=== PATIENT | female | born 1935 | race Caucasian/White ===

== ENCOUNTER 2017-07-17 20:12 | Emergency (ER) | payer MEDICARE, OTHER ==
[~2017-07-17] VITALS: Ht 157.5 cm; Wt 59.5 kg
[~2017-07-17 20:12] MED LIST: ADVAIR DISK1 INH; CRESTOR5 M1 PO; LISINOPRIL10 MG PO; SPIRONOLACT25 MG PO; ZETIA10 MG PO
[2017-07-18] MEDS ORDERED: LORTAB 1010 MG PO (00:17)
[2017-07-18 01:35] VITALS: BP 144/77
== END 2017-07-18 01:35 | disposition home or self-care (01) ==
LOC: ED 20:12
DX: S82.142A Displaced bicondylar fracture of left tibia, initial encounter for closed fracture (principal); I10 Essential (primary) hypertension; J45.909 Unspecified asthma, uncomplicated; W10.9XXA Fall (on) (from) unspecified stairs and steps, initial encounter; Y93.E9 Activity, other interior property and clothing maintenance; Y92.008 Other place in unspecified non-institutional (private) residence as the place of occurrence of the external cause; Z85.3 Personal history of malignant neoplasm of breast

== ENCOUNTER 2017-07-24 10:41 | Inpatient (IN) | payer MEDICARE, OTHER ==
[~2017-07-24] VITALS: Ht 157.5 cm; Wt 62.6 kg
[~2017-07-24 10:41] MED LIST changes: +LORTAB 1010 MG PO
[2017-07-24] MEDS ORDERED: AMLODIPINE5 MG PO (11:09)
[2017-07-24] MEDS ORDERED: ESCITALOPRAM OX10 MG PO (11:10)
[2017-07-24] MEDS ORDERED: PROAIR HFA IN (11:10)
[2017-07-27] VITALS (9 sets, daily range): BP systolic 113–141; BP diastolic 50–69
--- NOTE | 2017-07-27 14:43 | NUR ---
RECEIVED PT FROM OR VIA BED. RECEIVED REPORT FROM OR NURSE. PT RESTING QUIETLY IN BED. O2 AT 3 LITERS VIA NC. IV FLUIDS INFUSING WITHOUT DIFFICULTY. SITE WITHOUT REDNESS OR EDEMA. DRESSING TO LEFT KNEE CLEAN, DRY AND INTACT. ELEVATED ON PILLOWS. SCD TO RIGHT LEG. DAUGHTER AT BEDSIDE. WILL CONTINUE TO MONITOR. CALL LIGHT WITHIN REACH.
[2017-07-27] MEDS ORDERED: ANASTROZOLE1 MG PO (15:45)
--- NOTE | 2017-07-27 15:49 | NUR ---
PT COMPLAINED OF PAIN IN LEFT KNEE, MEDICATED WITH MORPHINE 2 MG IV PUSH. PT STATES KNEE PAIN AT 10, REPOSITIONED KNEE WELL. CALL LIGHT WITHIN REACH.
--- NOTE | 2017-07-27 16:41 | NUR ---
Isaac BLACKMAN COMPLETED.
--- NOTE | 2017-07-27 20:00 | NUR ---
PATIENT RESTING IN BED AT THIS TIME-AWAKE ALERT AND ORIENTEDX3, OMAHA AND DAUGHTER AT BEDSIDE. PATIENT C/O POST-OP PAIN-MEDICATED WITH PERCOCET TABS 2 FOR LEFT KNEE PAIN. IV SITE TO RIGHT FOREARM WITH IVF LR PATENT AND INFUSING AT 100CC/HR. DRESSING TO LEFT KNEE INTACT AND SECURED WITH SANDHYA WRAP. O2 VIA NASAL CANNULA IN PLACE. ENCOURAGED USE OF IS Q1H WHILE AWAKE AND CDB EXERCISES. SAFETY PRECAUTIONS REINFORCED. CALL LIGHT IN REACH. WILL CONT TO MONITOR.
--- NOTE | 2017-07-28 | NUR ---
TEMP 102.2-ICE PACKS TO ARMPITS AND COLD CLOTH TO FOREHEAD. PATIENT MEDICATED WITH PERCOCET TABS 2 FOR PAIN AND TEMP. BLANKLET REMOVED FROM BED. DAUGHTER REMAINS AT BEDSIDE. CALL LIGHT IN REACH. WILL CONT TO MONITOR.
--- NOTE | 2017-07-28 01:27 | NUR ---
TEMP REMAINS 102.0 AT THIS TIME-GOOD PAIN RELIEF FROM PERCOCET. TYLENOL 650MG PO GIVEN FOR TEMP. DAUGHTER REMAINS AT BEDSIDE. IVF PATENT AND INFUSING AT 100CC/HR VIA RIGHT FOREARM SITE. TAKING PO FLUIDS WELL AND TOLERATED WELL. DRESSING TO LEFT KNEE INTACT AND SECURED WITH SANDHYA WRAP. SAFETY PRECAUTIONS REINFORCED. CALL LIGHT IN REACH. WILL CONT TO MONITOR.
--- NOTE | 2017-07-28 02:30 | NUR ---
PATIENT TEMP TO 100.1. PATIENT ASSISTED OOB TO RECLINER PER PATIENT REQUEST-USING IS INSTRUCTED. DAUGHTER REMAINS AT BEDSIDE. CALL LIGHT IN REACH. WILL CONT TO MONITOR.
[2017-07-28 04:50] VITALS: BP 103/65
[2017-07-28 06:01] LABS: HEMATOCRIT 36.2 % (37.0-47.0); HEMOGLOBIN 11.9 g/dl (12.0-16.0); IMMATURE GRANULOCYTES 0.4 % (0.0-1.0); MEAN CELL VOLUME 91.2 fL CALC (80.0-100.0); MEAN CORPUSCULAR HGB CONC 32.9 g/L CALC (32.0-36.0); PLATELET COUNT 203 thou/uL (130-400); RED BLOOD COUNT 3.97 mill/uL (4.20-5.60); RED CELL DISTRI WIDTH 14.4 % (11.5-15.5)
[2017-07-28 06:17] LABS: ANION GAP 16 (6-22 (CALC)); BUN 14 mg/dL (8-23); BUN/CREATININE RATIO 15 (12-20 (CALC)); CARBON DIOXIDE 25 mmol/l (22-30); CHLORIDE 101 mmol/l (95-108); GFR 53 ML/MIN (>=60 (CALC)); GFR FOR AFR.AMER. > 60 ML/MIN (>=60 (CALC)); MAGNESIUM 1.2 mg/dL (1.6-2.3); SODIUM 138 mmol/l (137-146)
[2017-07-28 06:26] LABS: BAND 13 % (0-8); MANUAL DIFFERENTIAL YES; PLATELET ESTIMATE NORMAL
--- NOTE | 2017-07-28 07:00 | NUR ---
RECEIVED BEDSIDE REPORT FROM ABDIAS ALBERTO. RESTING IN HIGH FOWLERS WITH LEFT LEG ELEVATED ON PILLOWS. DRESSING TO LEFT LEG SECURED WITH SANDHYA WRAP, CDI. SCD TO RIGHT LOWER EXTREMITY. RESPS EVEN AND UNLABORED ON O2 VIA NC. DAUGHTER AT BEDSIDE. VOICES NO NEEDS AT THIS TIME. PLAN OF CARE DISCUSSED. SAFETY PRECAUTIONS REINFORCED. BED IN LOWEST POSITION WITH WHEELS LOCKED. CALL LIGHT WITHIN REACH. ENCOURAGED PT AND DAUGHTER TO CALL FOR ANY NEEDS.
[2017-07-28 07:45] VITALS: BP 105/48
--- NOTE | 2017-07-28 08:20 | NUR ---
RESTING IN BED WITH LEFT LEG ELEVATED ON PILLOWS. RESPS EVEN AND UNLABORED ON O2 VIA NC. DAUGHTER AT BEDSIDE. MEDICATED WITH PERCOCET X2 PO FOR C/O 8/10 LEFT KNEE THROBBING WITH ZOFRAN IVP FOR NAUSEA. ICE PACKS APPLIED TO LEFT KNEE, DRESSING TO LEFT KNEE SECURED WITH SANDHYA WRAP CDI, CMS TO LEFT LOWER EXTREMITY. CALL LIGHT WITHIN REACH. WILL CONTINUE TO MONITOR.
--- NOTE | 2017-07-28 08:50 | NUR ---
PHYSICAL THERAPY IN WITH PT.
--- NOTE | 2017-07-28 09:29 | NUR ---
PT WAS SEEN LAYING ON BED WITHOUT DIZZINESS BUT REPORTS FEELING SICK. PT WAS ABLE TO PERFORM SUPINE TO SIT WITH MODIFIED INDEP. AND VERBAL CUES. SIT O STAND REQUIRED MODERATE ASSIST. NOTED INSTABILITY OF B LE ON STANDING WITH SHAKING OF B UE. PT REPORTED DIFFICULTY EXTENDING L KNEE AND PAIN WHEN WB ON IT. ASSISTED PT FROM BED TO/FROM COMMODE WITH RW AND MOD. ASSIST. PT WAS VERY UNSTABLE AND IS UNSAFE TO BE LEFT ALONE DURING AMBULATION. LEFT PT SUPINE ON BED WITH L LEG ELEVATED ON PILLOW. CALL LEVINE WITHIN REACH. FALL PRECAUTION WAS ALSO REINFORCED.
[2017-07-28 11:00] VITALS: BP 100/42
[2017-07-28 11:32] LABS: URINE BILIRUBIN - DIPSTICK NEGATIVE (NEGATIVE); URINE BLOOD DIPSTICK SMALL (NEGATIVE); URINE GLUCOSE - DIPSTICK NEGATIVE (NEGATIVE); URINE KETONE TRACE mg/dL (NEGATIVE); URINE LEUK ESTERASE NEGATIVE (Negative); URINE NITRITE - DIPSTICK NEGATIVE (Negative); URINE PH 5.5 (4.5-8.0); URINE PROTEIN - DIPSTICK TRACE mg/dL (NEG-TRACE); URINE SPECIFIC GRAVITY >=1.030; URINE UROBILINOGEN - DIPSTICK 0.2 E.U./dL (0.2)
[2017-07-28 11:33] LABS: URINE CLARITY HAZY; URINE COLOR DK. YELLOW; URINE WBC 0-2 WBC/hpf (0-5)
[2017-07-28 11:34] LABS: URINE BACTERIA FEW hpf; URINE EPITHELIAL CELLS MODERATE EPI/hpf (0-FEW)
--- NOTE | 2017-07-28 12:00 | NUR ---
IN HIGH FOWLERS EATING LUNCH. RESPS EVEN AND UNLABORED ON O2 VIA NC. #20 RFA INFUSING MAG SULFATE WITHOUT DIFFICULTY, SITE APPEARS HEALTHY. LEFT LEG ON PILLOWS, DRESSING SECURED WITH SANDHYA WRAP, CDI. ICE PACKS TO LEFT KNEE. VOICES NO NEEDS AT THIS TIME. CALL LIGHT WITHIN REACH. ENCOURAGED PT TO CALL FOR ANY NEEDS.
[2017-07-28 16:00] VITALS: BP 102/46
--- NOTE | 2017-07-28 16:00 | NUR ---
RESTING IN HIGH FOWLERS DAUGHTER AT BEDSIDE. RESPS EVEN AND UNLABORED ON O2 VIA NC. DENIES PAIN OR DISCOMFORT. SPO2 94% ON O2 AT 2L VIA NC. OXYGEN REMOVED, WILL RECHECK SPO2 IN 30 MINS. PT AND DAUGHTER INSTRUCTED TO CALL IF SOB OR DYSPNEA. CALL LIGHT WITHIN REACH. WILL CONTINUE TO MONITOR.
--- NOTE | 2017-07-28 16:30 | NUR ---
SPO2 77% ON ROOM AIR WHILE PT AT REST. PT PLACED ON O2 AT 2L VIA NC, SPO2 RETURNED TO 91% WITHIN 60 SECONDS. LORY LOPEZ NOTIFIED. CALL LIGHT WITHIN REACH.
--- NOTE | 2017-07-28 17:29 | NUR ---
pm: Patient seen for ex and functional activities. Her daughter is present and states they have changed their minds and patient is going to go to rehab for a while. Ex done in supine and sitting for rom and strengthening. Gait done with rolling walker. She mod assist and cuing to place wgt on the surgical limb. Endurance was 10 feet limited by visible trembling in arms and legs, and verbalization of fatigue. She was left comfortable in the chair with the call light and tray table in reach.
--- NOTE | 2017-07-28 20:00 | NUR ---
PATIENT RESTING IN BED WITH O2 VIA NASAL CANNULA IN PLACE. AWAKE ALERT AND ORIENTEDX3-PATIENT IS [place]. PATIENT ASSISTED FROMN BED TO BSC TO VOID USING THE WALKER-PATIENT IS VERY UNSTEADY ON HER FEET AND NEEDS CONSTANT QUES. PATIENT IS VOIDING QS ROSA ELENA URINE. KENDY-CARE WITH SOAP AND H20 PROVIDED AND TRANSFERRED TO RECLINER USING THE WALKER. DRESSING TO LEFT KNEE INTACT AND SECURED WITH SANDHYA WRAP. HEP LOCK TO RIGHT FOREARM INTACT AND APPEARS HEALTHY AT THIS TIME. ENCOURAGED USE OF IS Q1H WHILE AWAKE AND PATIENT IS ABLE TO DEMONSTRATE CORRECT USE OF THE DEVICE. ENCOURAGE PO FLUIDS AND HIGH FIBER DIET TO PREVENT ANY POST-OP CONSTIPATION. ABD IS SOFT WITH ACTIVE BS. STATES THAT SHE IS PASSING SOME FLATUS. PATIENT MEDICATED FOR POST-OP PAIN WITH PERCOCETS ORDERED. SAFETY PRECAUTIONS REINFORCED. CALL LIGHT IN REACH. WILL CONT TO MONITOR.
[2017-07-28 20:25] VITALS: BP 105/59
--- NOTE | 2017-07-28 23:30 | NUR ---
PATIENT APPEARS SLEEPING WITH HOB ELEVATED AND EYES CLOSED. O2 VIA NASAL CANNULA IN PLACE. DAUGHTER RESTING ON COUCH IN THE ROOM. PROVIDED WITH RECLINER AND LINENS TO STAY THE NIGHT. CALL LIGHT IN REACH. WILL CONT TO MONITOR.
[2017-07-29] VITALS (8 sets, daily range): BP systolic 87–119; BP diastolic 43–66
--- NOTE | 2017-07-29 00:32 | NUR ---
PATIENT RESTING IN BED WITH HOB ELEVATED AND O2 VIA NASAL CANNULA IN PLACE. TEMP-100.9-MEDICATED WITH TYLENOL 650MG PO AND WITH PERCOCET 10/325MG 1 TABLET FOR 5/10 PAIN SCALE. PATIENT USING IS INSTRUCTED. DAUGHTER REMAINS AT BEDSIDE. CALL LIGHT IN REACH. WILL CONT TO MONITOR.
--- NOTE | 2017-07-29 04:10 | NUR ---
PATIENT RESTING IN BED WITH HOB ELEVATED AND EYES CLOSED-APPEARS SLEEPING AT THIS TIME. O2 VIA NASAL CANNULA IN PLACE. DAUGHTER RESTING AT BEDSIDE. CALL LIGHT IN REACH. WILL CONT TO MONITOR.
[2017-07-29 05:31] LABS: HEMATOCRIT 30.5 % (37.0-47.0); HEMOGLOBIN 10.3 g/dl (12.0-16.0); IMMATURE GRANULOCYTES 0.6 % (0.0-1.0); MEAN CELL VOLUME 89.7 fL CALC (80.0-100.0); MEAN CORPUSCULAR HGB 30.3 pG CALC (26.0-32.0); MEAN CORPUSCULAR HGB CONC 33.8 g/L CALC (32.0-36.0); NEUT# 12.02 thou/uL (2.00-7.15); RED BLOOD COUNT 3.4 mill/uL (4.20-5.60)
[2017-07-29 05:54] LABS: CREATININE 1.1 mg/dL (0.5-1.0); POTASSIUM 4.3 mmol/l (3.5-5.1)
[2017-07-29 05:57] LABS: MAGNESIUM 2.3 mg/dL (1.6-2.3)
--- NOTE | 2017-07-29 07:00 | NUR ---
received bedside report from seng cade. resting in semi fowlers with left leg elevated on pillows, dressing to left knee secured with lance wrap, cdi. resps even and unlabored on o2 via nc. scd to right lower extremity. denies pain or discomfort. daughter at bedside. plan of care discussed. safety precautions reinforced. bed in lowest position with wheels locked. call light within reach. encouraged pt and family to call for any needs.
--- NOTE | 2017-07-29 07:50 | NUR ---
SITTING IN BEDSIDE CHAIR EATING BREAKFAST. DAUGHTER AT BEDSIDE. RESPS EVEN AND UNLABORED ON O2 VIA NC. MEDIATED WITH TYLENOL PO FOR TYMPANIC TEMP 100.5. PO FLUIDS OFFERED. CALL LIGHT WITHIN REACH. WILL CONTINUE TO MONITOR.
--- NOTE | 2017-07-29 09:10 | NUR ---
MEDIATED WITH PERCOCET X2 PO FOR C/O 07/25 LEFT KNEE PAIN. WILL CONTINUE TO MONITOR.
--- NOTE | 2017-07-29 11:43 | NUR ---
ASSISTED TO BED FROM RECLINER WITH MAX ASSIST WITH UNSTEADY GAIT, REQUIRING FREQUENT CUES. DRESSING TO LEFT KNEE REMOVED, NO DRAINAGE OR REDNESS NOTED. DERMABOND LEFT IN PLACE. TOLERATED WITHOUT DIFFICULTY. DAUGHTER AT BEDSIDE. CALL LIGHT WITHIN REACH. WILL CONTINUE TO MONITOR.
--- NOTE | 2017-07-29 12:15 | NUR ---
PHYSICAL THERAPY IN WITH PT.
[2017-07-29 13:02] LABS: CREATININE 1.1 mg/dL (0.5-1.0); POTASSIUM 4.2 mmol/l (3.5-5.1)
--- NOTE | 2017-07-29 13:20 | NUR ---
NEB TX NOT GIVEN. PT SLEEPING AND DID NOT WANT WOKE.
--- NOTE | 2017-07-29 14:08 | NUR ---
PT WAS SEEN SLEEPING WITH LOUD SNORING. ATTEMPTED TO WAKE HER UP VERBALLY AND WITH VIGOROUS SHAKING BUT PT STAYED ASLEEP.
--- NOTE | 2017-07-29 14:11 | NUR ---
PATIENT IN BED WILLING TO WALK TODAY. HER DAUGHTER IS PRESENT. SUPINE TO SIT WITH SUPPORT AT LEFT LE ONLY. SIT TO STAND WITH MOD A AND V.C.'S FOR SAFETY. INSTRUCTED IN SEQUENCING FOR STEP TO GAIT AT RW FOR AM TX OF GT AND FUNCTIONAL ACTIVITY OF TRANSFERS. PATIENT WAS ABLE TO AMB 30 FEET WITH LIGHT CGA AND CONSTANT V.C.S. STAND TO SIT WITH VERBAL AND TACTILE CUES. PATIENT FATIGUED AND WISHED TO REMAIN SITTING ON EDGE OF BED FOR HER LUNCH TRAY. SHE WAS ABLE TO SCOOT BACK WITH L LE SUPPORTED. TRAY TABLE IN FRONT OF PATIENT WITH HER DAUGHTER PRESENT.
--- NOTE | 2017-07-29 20:00 | NUR ---
PATIENT SITTING UP IN THE RECLINER AT THIS TIME-AWAKE ALERT AND ORIENTEDX3 WITH SLOWED VERBAL REPONSES. HAND GRASPS ARE STRONG AND EQUAL. DAUGHTER AT BEDSIDE. IV SITE TO RIGHT FOREARM INTACT AND APPEARS HEALTHY WITH IVF NS PATENT AND INFUSING AT 100CC/HR. TELE MONITORING DEVICE IN PLACE. LEFT KNEE INCISION IS BORDER MEASURER WITH DERMABOND INTACT-WELL APPROXIMATED WITH SOME POST-OP SWELLING NOTED. ENCOURAGED CONT USE OF IS Q1H WHILE AWAKE,DEMONSTRATES USE OF DEVICE. SAFETY PRECAUTOINS REINFORCED. CALL LIGHT IN REACH. WILL CONT TO MONITOR.
--- NOTE | 2017-07-29 22:15 | NUR ---
PATIENT RESTING IN BED-MEDICATED FOR PAIN WITH PERCOCET ORDERED FOR POST-OP PAIN. CALL LIGHT IN REACH. WILL CONT TO MONITOR
--- NOTE | 2017-07-30 00:15 | NUR ---
PATIENT SITTING UP IN THE RECLINER AT THIS TIME-AWAKE ALERT AND ORIENTEDX3 WITH SLOWED VERBAL RESPONSES. HAND GRASPS ARE STRONG AND EQUAL. DAUGHTER AT BEDSIDE. IV SITE TO RIGHT FOREARM INTACT AND APPEARS HEALTHY WITH IVF NS PATENT AND INFUSING AT 100CC/HR. TELE MONITORING DEVICE IN PLACE. LEFT KNEE INCISION IS HAND CANDY MOLDER WITH DERMABOND INTACT-WELL APPROXIMATED WITH SOME POST-OP SWELLING NOTED. ENCOURAGED CONT USE OF IS Q1H WHILE AWAKE. DEMONSTRATES USE OF DEVICE. DAUGHTER AT BEDSIDE. SAFETY PRECAUTIONS REINFORCED.CALL LIGHT IN REACH. WILL CONT TO MONITOR.
[2017-07-30 00:24] VITALS: BP 94/58
--- NOTE | 2017-07-30 03:00 | NUR ---
PATIENT FOUND WITH O2 OFF-TUBING ON THE FLOOR. O2 REAPPLIED AND PATIENT RESPONDED WITH O2 SAT REBOUNDING TO 93%. PATIENT THEN STATED THAT SHE THINKS SHE IS GOING TO HAVE "ASTHMA ATTACK". RT CALLED AND NEB TREATMENT GIVEN. MEDICATED FOR NAUSEA WITH ZOFRAN ORDERED. STATES THAT SHE FEELS THAT HER MOUTH IS VERY DRY-EXPLAINED TO BOTH PATIENT AND DAUGHTER THAT THIS IS POSSIBLE SIDE EFFECT FROM HYPONATREMIA. ICE CHIPS PROVIDED. CALL LIGHT IN REACH. WILL CONT TO MONITOR.
[2017-07-30 03:28] VITALS: BP 108/54
[2017-07-30 03:50] LABS: HEMATOCRIT 26.7 % (37.0-47.0); HEMOGLOBIN 9.1 g/dl (12.0-16.0); IMMATURE GRANULOCYTES 1.2 % (0.0-1.0); MEAN CELL VOLUME 88.4 fL CALC (80.0-100.0); MEAN CORPUSCULAR HGB 30.1 pG CALC (26.0-32.0); MEAN CORPUSCULAR HGB CONC 34.1 g/L CALC (32.0-36.0); NEUT# 11.56 thou/uL (2.00-7.15); RED BLOOD COUNT 3.02 mill/uL (4.20-5.60); RED CELL DISTRI WIDTH 13.6 % (11.5-15.5)
[2017-07-30 05:19] LABS: CREATININE 1.1 mg/dL (0.5-1.0); MAGNESIUM 2.1 mg/dL (1.6-2.3); POTASSIUM 4.4 mmol/l (3.5-5.1)
--- NOTE | 2017-07-30 06:43 | NUR ---
PATIENT CONT WITH WORD FINDING DIFFICULTIES, PATIENT FOUND AGAIN WITH O2 OFF AND LOW O2 SATS THAT REBOUNDED QUICKLY WHEN O2 REAPPLIED. DAUGHTER REMAINS AT BEDSIDE. PATIENT MEDICATED FOR C/O POST-OP LEFT KNEE PAIN WITH PERCOCET 10/325MG PO FOR 6/10 PAIN SCALE. SAFETY PRECAUTIONS REINFORCED. CALL LIGHT IN REACH.
--- NOTE | 2017-07-30 07:00 | NUR ---
SHIFT CHANGE REPORT FROM GUSTAVO CALERO AWAKE ALERT AND ORIENTED SITTING UP IN RECLINER, IVF INFUSING, TELE MONITOR IN PLACE, C/O EXCESSIVE THIRST AND HAS BEED DRINKING MUCH H2O. ADVISED/INFORMED AND EDUCATED ON NA LEVELS AND PLAN OF CARE, DAUGHTER IN ROOM ALSO WHEN EDUCATION RELAYED. CALL LEVINE IN REACH, WILL CONTINUE TO MONITOR.
[2017-07-30 09:32] VITALS: BP 112/58
[2017-07-30 11:00] VITALS: BP 103/56
--- NOTE | 2017-07-30 12:19 | NUR ---
SITTING UP IN RECLINER WITH LEGS ELEVATED, SET UP FOR MEAL, NO C/O DISCOMFORT, CALL LEVINE IN REACH.
--- NOTE | 2017-07-30 12:50 | NUR ---
PT WAS SEEN SITTING IN THE RECLINER WITH DAUGHTER IN THE ROOM. DAUGHTER REPORTS THAT PT HAS NOT BEEN FEELING WELL AND IS TOO SHAKY THIS MORNING. WILL ATTEMPT TX IN THE AFTERNOON IF SHE GETS BETTER.
--- NOTE | 2017-07-30 13:47 | NUR ---
RE-ATTEMPTED THERAPY BUT PT WAS STILL NOT WELL TO PARTICIPATE. DAUGHTER PREFERS TO HOLD OFF THE TX UNTIL HER MOM IS BETTER.
[2017-07-30 14:48] LABS: ALBUMIN 2.4 g/dL (3.2-5.0); BUN 27 mg/dL (8-23); CARBON DIOXIDE 26 mmol/l (22-30); CHLORIDE 90 mmol/l (95-108); GFR 53 ML/MIN (>=60 (CALC)); GFR FOR AFR.AMER. > 60 ML/MIN (>=60 (CALC)); POTASSIUM 4.4 mmol/l (3.5-5.1); SODIUM 124 mmol/l (137-146)
[2017-07-30 16:00] VITALS: BP 127/61
--- NOTE | 2017-07-30 16:39 | NUR ---
RESTING IN RECLINER, NO C/O DISCOMFORT, LAB RESULTS REVIEWED WITH PT AND DAUGHTER, ALL QUESTIONS ADDRESSED AND NEEDS MET, CALL LEVINE IN REACH.
--- NOTE | 2017-07-30 19:00 | NUR ---
PT SITTING UP IN BED WATCHING TV. PT IS ALERT AND ORIENTED TO SELF. PT EASILY REORIENTED TO PLACE AND TIME. PT BECOMES CONFUSED AGAIN AT TIME. PERRLA. RESP ARE EVEN AND UNLABORED. NO DISTRESS NOTED. LUNGS ARE CLEAR. HR REGULAR. TELE IN PLACE. PULSES PALPABLE THROUGHOUT. SLIGHT EDEMA NOTED TO LEFT KNEE. BS ACTIVE. #20 RFA. SALINE LOCKED. NO REDNESS OR EDEMA NOTED. WILL CONTINUE TO MONTIOR. BED ALARM ON. CALL LIGHT WITHIN REACH
[2017-07-30 19:20] VITALS: BP 97/53
[2017-07-31] VITALS (7 sets, daily range): BP systolic 95–115; BP diastolic 46–58
--- NOTE | 2017-07-31 00:30 | NUR ---
PT ASSISTED TO BSC. MINIMAL ASSISTANCE. PT THEN ASSISTED BACK TO BED. PT CONTINUES WITH PERIODS OF CONFUSION. BED ALARM ON. SPOKE WITH DAUGHTER SHE STATES THAT CONFUSION IS INCREASING AND SEEMS TO BE WORSE AT NIGHT. WILL CONTIUE TO MONITOR. CALL LIGHT IN REACH
--- NOTE | 2017-07-31 04:00 | NUR ---
PT RESTING IN BED WITH EYES CLOSED. RESP ARE EVEN AND UNLABORED. NO DISTRESS NOTED. WILL CONTINUE TO MONITOR
--- NOTE | 2017-07-31 04:44 | NUR ---
TEMP 100.00. MEDICATED WITH TYLENOL 650MG PO.
--- NOTE | 2017-07-31 05:49 | NUR ---
TEMP RECHECK 99.0
[2017-07-31 06:39] LABS: HEMOGLOBIN 9.1 g/dl (12.0-16.0); MEAN CELL VOLUME 88.5 fL CALC (80.0-100.0); MEAN CORPUSCULAR HGB 29.8 pG CALC (26.0-32.0); MEAN CORPUSCULAR HGB CONC 33.7 g/L CALC (32.0-36.0); RED BLOOD COUNT 3.05 mill/uL (4.20-5.60); RED CELL DISTRI WIDTH 14.1 % (11.5-15.5)
[2017-07-31 06:43] LABS: ALBUMIN 2.4 g/dL (3.2-5.0); BUN 27 mg/dL (8-23); CARBON DIOXIDE 26 mmol/l (22-30); CHLORIDE 96 mmol/l (95-108); GFR 53 ML/MIN (>=60 (CALC)); GFR FOR AFR.AMER. > 60 ML/MIN (>=60 (CALC)); MAGNESIUM 2.1 mg/dL (1.6-2.3); POTASSIUM 4.3 mmol/l (3.5-5.1)
[2017-07-31 06:46] LABS: SODIUM 131 mmol/l (137-146)
--- NOTE | 2017-07-31 07:00 | NUR ---
SHIFT CHANGE REPORT FROM BERNABE, PT SLEEPING AND APPEARS TO BE TALKING IN SLEEP, NO SIGN DISCOMFORT OBSERVED, HS RN REPORTED PT WAS CONFUSED ALL NIGHT AND DID NOT SLEEP. DAUGHTER IN ROOM AT THIS TIME, WILL CONTINUE TO MONITOR, CALL LEVINE IN REACH AND BED ALARM ON.
--- NOTE | 2017-07-31 11:41 | NUR ---
PATIENT SEEN FOR AM TX OF GT AND EX. SHE WAS UP IN CHAIR AND DAUGHTER PRESENT. DTR REPORTS THAT PATIENT HAS BEEN UP ALL NIGHT HALLUCINATING. SHE IS NOT ORIENTED TO PLACE OR TIME. PATIENT AGREES TO DO SOME EXERCISE, BUT FEELS TO TIRED TO AMB. PERFORMED SITTING LAQ ACTIVELY AND THEN REC'D PROM WITH PROLONGED STRETCH. UNABLE TO FULLY EXTEND IN SITTING A/PROM. PATIENT WAS THEN ENCOURAGED TO WALK IN THE ROOM, " LONG IT IS NOT OUTSIDE". SIT TO STAND WITH CGA AND V.C.'S TO WALKER. AMB 25 FEET WITH ASSIST TO ADVANCE WALKER WITHOUT BRINGING LEFT LE AHEAD OF IT. STAND TO SIT WITHH V.C.'S SAFELY. PATIENT'S DAUGHTER REPORTS THAT THEY ARE GOING TO HAVE PATIENT ATTEND REHAB [place]. CHAIR ALARM, TRAY TABLE AND O2 REPLACED. TOLERATED TX WELL.
--- NOTE | 2017-07-31 14:28 | NUR ---
Pt sitting up in chair, daughter present and stated she had just returned from [place]. Pt performed LLE ex in chair, recline and sitting at 90/90 position with physical and verbal cues required. She did not consistantly follow instructions, was talking and not paying attention. She moved sit to and from stand with SBA/CGA and with verbal instructions for safety. Ambulation with RW into BR and then 2x30' with CGA and verbal instructions to straighten L knee. Pt tended to lift walker vs pushing it. She was reposition in chair with LE elevated. Pt daughter present and did not want her to have call araiza at this time. Alarm/O2 were in place.
--- NOTE | 2017-07-31 15:56 | NUR ---
ASSISTED TO BR AND BACK TO RECLINER, SOME MILD CONFUSION OBSERVED BUT SHE IS ORIENTED, AMBULATES WELL WITH ASSIST OF ONE STAFF AND WALKER. BODY ALARM PLACED, FAMILY MEMBER IN ROOM, CALL LEVINE IN REACH.
--- NOTE | 2017-07-31 19:40 | NUR ---
REPORT RECIEVED; FAMILY AT BEDSIDE. PT ALERT TO PERSON WITH PERIODS OF CONFUSION FAMILY STATED. PT DENIES ANY PAIN OR DISCOMFORT. TELE IN PLACE. SAFETY PRECAUTIONS REINFORCED. FREQUENT ROUNDS MADE. BED ALARM IN PLACE FOR SAFETY. RESP EVEN AND UNLABORED WITH O2 IN PLACE. CALL LIGHT WITHIN REACH.
--- NOTE | 2017-07-31 21:50 | NUR ---
PT OUT OF BED IN BEDSIDE CHAIR. RESP EVEN AND UNLABORED WITH O2 IN PLACE. TELE IN PLACE. ABD SOFT; ACTIVE BOWEL SOUNDS NOTED. LEFT LEG STERI GLUE INTACT;CDI. TRACE EDEMA NOTED. PEDAL PULSES PALPATED BILAT. IV RFA PATENT; FLUSHED WITHOUT DIFFICULTY. PT ALERT TO PERSON; REORIENTED NEEDED. FAMILY AT BEDSIDE. PT ENCOURAGED TO CALL FOR ASSISTANCE. SAFETY PRECAUTIONS REINFORCED; BED ALARM IN PLACE FOR SAFETY. CALL LIGHT WITHIN REACH.
[2017-08-01] VITALS (7 sets, daily range): BP systolic 107–168; BP diastolic 51–74
--- NOTE | 2017-08-01 00:30 | NUR ---
PT OUT OF BED IN BEDSIDE CHAIR; PT DENIES PAIN OR DISCOMFORT. PT REORIENTED NEEDED. TELE IN PLACE. CALL LIGHT WITHIN REACH. FAMILY AT BEDSIDE.
--- NOTE | 2017-08-01 02:12 | NUR ---
PT APPEARS TO BE HALLUCINATING, PT IS ALERT TO SELF. PT STATES SEEING "STUFFED ANIMALS" "BOXES ALL OVER FLOOR", "CATS" IN ROOM. PT REORIENTED. FAMILY AT BEDSIDE REORIENTING PT. PT TOOK OFF TELE, REMOVING IV. NOTIFIED; NEW ORDER RECIEVED. HALDOL 2.5 MG IM X1 DOSE. SAFETY PRECAUTIONS REINFORCED. BED ALARM IN PLACE FOR SAFETY. RESP EVEN AND UNLABORED; NO DISTRESS NOTED WITH O2 IN PLACE. TELE PUT IN PLACE. FREQUENT ROUNDS MADE; WILL MONITOR CLOSELY. CALL LIGHT WITHIN REACH.
--- NOTE | 2017-08-01 04:40 | NUR ---
RESP EVEN AND UNLABORED; NO DISTRESS NOTED. TELE IN PLACE. BED ALARM IN PLACE FOR SAFETY. CALL LIGHT WITHIN REACH.
[2017-08-01 05:50] LABS: ALBUMIN 2.4 g/dL (3.2-5.0); BUN 28 mg/dL (8-23); CARBON DIOXIDE 31 mmol/l (22-30); CHLORIDE 99 mmol/l (95-108); CREATININE 0.9 mg/dL (0.5-1.0); GFR 60 ML/MIN (>=60 (CALC)); GFR FOR AFR.AMER. > 60 ML/MIN (>=60 (CALC)); POTASSIUM 3.6 mmol/l (3.5-5.1)
[2017-08-01 05:56] LABS: SODIUM 139 mmol/l (137-146)
--- NOTE | 2017-08-01 07:00 | NUR ---
SHIFT CHANGE REPORT FROM DYLAN, GUSTAVO SLEEPING SOUNDLY, OFF-GOING NURSE REPORTED PT WAS AWAKE ALL NIGHT. HER BREATHING IS EVEN AND NON-LABORED, NO SIGN DISCOMFORT, CALL LEVINE IN REACH.
--- NOTE | 2017-08-01 10:52 | NUR ---
PT STILL SLEEPING, VERY DIFFICULT TO BE AWAKENED WITH BOTH TACTILE AND VERBAL STIMULATION, OPENS EYES TO COMMANDS AND PROCESSES SLOWLY, WILL CONTINUE TO MONITOR.
--- NOTE | 2017-08-01 11:35 | NUR ---
PT AWOKE FOR BRP, ORIENTED TO PERSON ONLY, DENIES PAIN/DISCOMFORT, ASSISTED WITH AM CARE, SAT UP IN RECLINER, OFERED TEA AND ACCEPTED, DAUGHTER ASSISTED WITH ORAL CARE, WILL CONTINUE TO MONITOR.
--- NOTE | 2017-08-01 12:14 | NUR ---
PATIENT SEEN FOR AM TX OF GT AND GRETEL. SHE REPORTEDLY HAD A VERY BAD NIGHT LAST NIGHT, WITH NO SLEEP AND INCREASED HALLUCINATIONS. SHE DID FINALLY SLEEP THIS A.M. PATIENT IS UP IN CHAIR WITH HER DAUGHTER PRESENT. SIT TO STAND WITH MIN A TO RW FOR GT OUT INTO HALLWAY. SHE INITIALLY REQUIRED FULL ASSIST TO ADVANCE WALKER WITH FAISAL TOO FAR FORWARD IN WALKER. ONCE SHE AMB WITH THIS ASSIST, SHE WAS BETTER ABLE TO MAINTAIN HER COG WITHIN THE WALKER SAFELY WITH MIN A. NO LOB OR C\O PAIN. SHE AMB 80 FEET TO END OF HALLWAY AND SAT IN ARMLESS CHAIR WITH V.C.'S AND CGA. SIT TO STAND FOLLOWING A REST WITH MOD A, AND AMB 80 FEET BACK TO HER ROOM. STAND TO SIT IN CHAIR WITH V.C.'S ONLY. O2 AND TRAY WITH HER LUNCH SET UP AND HER DAUGHTER ASSISTING WITH SAME. CONTINUE BID.
--- NOTE | 2017-08-01 14:33 | NUR ---
PATIENT SEEN FOR P.M. TX OF GT AND GRETEL. PATIENT SIT TO STAND FROM CHAIR WITH CGA TO CLOSE SBA AND V.C. TO RW. AMB 85 FEET WITH LIGHT CGA AND CGA FOR WALKER TO MAINTAIN APPROPRIATE SUPPORT AND SAFETY. PATIENT IS NOW BEGINNING TO AMB WITH STEP THROUGH GAIT, BUT TENDS TO WB ON LEFT TOES. SHE IS ABLE TO CORRECT THIS WITH CUING. STANDING REST DUE TO FATIGUE. AMB 75 FEET BACK TO BED WITH IMPROVED SEQUENCING A SAFETY. STAND TO SIT WITH V.C.'S. MIN A AT LE'S FOR SIT TO SUPINE. GRETEL WTIH ANKLE PUMPS, ATTEMPTING QUAD SET BUT DIFFICULTY FOLLOWING THIS VERBAL DIRECTION. SAQ AND HEEL SLIDE AA TO ACTIVE. PATIENT INITIATING SLR WITH EXTENSOR LAG. DAUGHTER INSTRUCTED IN ASSISTING WITH EX.
--- NOTE | 2017-08-01 16:00 | NUR ---
SLEEPING IN BED AT THIS TIME, ALARM IN PLACE, CALL LEVINE IN REACH, FAMILY MEMBER IN ROOM.
--- NOTE | 2017-08-01 19:35 | NUR ---
REPORT RECIEVED; PT WOKE TO SPEECH. PT DENIES PAIN OR DISCOMFORT. FAMILY AT BEDSIDE. BED ALARM IN PLACE FOR SAFETY. SAFETY PRECAUTIONS REINFORCED. FREQUENT ROUNDS MADE. CALL LIGHT WITHIN REACH.
--- NOTE | 2017-08-01 20:40 | NUR ---
PT WOKE FOR ASSESSMENT; PT DENIES PAIN OR DISCOMFORT. FAMILY AT BEDSIDE. RESP EVEN AND UNLABORED WITH O2 IN PLACE; NO DISTRESS NOTED. TELE IN PLACE. ABD SOFT; ACTIVE BOWEL SOUNDS NOTED. SURGICAL INCISION TO LEFT KNEE WELL APPROXIMATED WITH STERI GLUE; CDI. PEDAL PULSES PALPATED BILAT. IV RFA PATENT; FLUSHED WITHOUT DIFFICULTY. SAFETY PRECAUTIONS REINFORCED. BED ALARM IN PLACE FOR SAFETY. PT ALERT TO PERSON. WILL CONTINUE TO MONITOR. CALL LIGHT WITHIN REACH.
--- NOTE | 2017-08-02 00:30 | NUR ---
RESP EVEN AND UNLABORED; NO DISTRESS NOTED. PT APPEARS TO BE SLEEPING. TELE IN PLACE. FAMILY AT BEDSIDE. BED ALARM IN PLACE FOR SAFETY. CALL LIGHT WITHIN REACH.
[2017-08-02 01:02] VITALS: BP 123/74
[2017-08-02 04:22] VITALS: BP 133/70
--- NOTE | 2017-08-02 04:30 | NUR ---
ASSESSMENT UNCHANGED. RESP EVEN AND UNLABORED WITH O2 IN PLACE. TELE IN PLACE. FAMILY AT BEDSIDE. BED ALARM IN PLACE FOR SAFETY. CALL LIGHT WITHIN REACH.
[2017-08-02 05:24] LABS: HEMATOCRIT 27.2 % (37.0-47.0); HEMOGLOBIN 9.1 g/dl (12.0-16.0); IMMATURE GRANULOCYTES 3.1 % (0.0-1.0); MEAN CELL VOLUME 88.6 fL CALC (80.0-100.0); MEAN CORPUSCULAR HGB 29.6 pG CALC (26.0-32.0); MEAN CORPUSCULAR HGB CONC 33.5 g/L CALC (32.0-36.0); NEUT# 4.7 thou/uL (2.00-7.15); RED BLOOD COUNT 3.07 mill/uL (4.20-5.60); RED CELL DISTRI WIDTH 14.8 % (11.5-15.5)
[2017-08-02 05:43] LABS: ANION GAP 13 (6-22 (CALC)); BUN 21 mg/dL (8-23); BUN/CREATININE RATIO 27 (12-20 (CALC)); CARBON DIOXIDE 33 mmol/l (22-30); CHLORIDE 95 mmol/l (95-108); CREATININE 0.8 mg/dL (0.5-1.0); GFR > 60 ML/MIN (>=60 (CALC)); GFR FOR AFR.AMER. > 60 ML/MIN (>=60 (CALC)); POTASSIUM 3.4 mmol/l (3.5-5.1); SODIUM 137 mmol/l (137-146)
[2017-08-02 05:44] LABS: MAGNESIUM 1.4 mg/dL (1.6-2.3)
--- NOTE | 2017-08-02 07:00 | NUR ---
SHIFT CHANGE FROM DYLAN, PT SLEEPING SOUNDLY, BREATHING EVEN AND NON-LABORED WITH O2 @ 2L VIA NC, NO SIGN DISCOMFRT, TELE MONITOR IN PLACE, CALL LEVINE IN REACH.
[2017-08-02 08:13] VITALS: BP 131/69
[2017-08-02 11:00] VITALS: BP 148/68
--- NOTE | 2017-08-02 11:15 | NUR ---
SLEEPING ALL AM, WILL NOT STAY AWAKE WITH MUCH VERBAL AND TACTILE STIMULI. WOKE HER UP, INVOLVED HER IN AM CARE BY HAVING HER WASH FACEAND UPPER BODY, GOT HER OOB TO BSC, GEVE HER BACK WASH/RUB, HAD HER DO HER OWN KENDY CARE THEN ASSISTED HER TO RECLINER AND SET HER UP FOR MEAL. SHE AWAKENED FULLY, DENIED DISCOMFORT, AMBULATED WITH PHYSICAL THERAPIST AND RETURNED TO RECLINER, HAVING MEAL AT THIS TIME, WILL CONTINUE TO MONITOR.
--- NOTE | 2017-08-02 12:35 | NUR ---
1100: PATIENT SEEN BEDSIDE FOR GAIT TRAINING. PATIENT WAS UP IN THE CHAIR AND STATED SHE WAS TIRED FROM HER BATH. HER DAUGHTER STATES THE PATIENT HASN'T SLEPT WELL AT NIGHTS. PATIENT DID AGREE TO A SHORT WALK. GAIT TRAINING DONE WITH A RW. GAIT PATTERN IS FUNCTIONAL. ENDURANCE WAS 75 FEET, LIMITED BY FEELING OF GENERAL FATIGUE, AND HEAVINESS IN THE OPERATED LIMB. SHE REQUIRED VERBAL CUING FOR SAFE TRANSFERS TO AND FROM SIT. SHE WAS LEFT COMFORTABLE IN THE CHAIR WITH HER DAUGHTER PRESENT AND ASSISTING THE PATIENT WITH HER MEAL.
--- NOTE | 2017-08-02 13:49 | NUR ---
1:30: PATIENT SEEN EX AND GAIT TRAINING. C/O OF FATIGUE. EX DONE IN SITTING FOR ANKLE PUMPS, LAQ, HIP/KNEE FLEXION. kNEE ROM IN SITTING WAS 90 DEGREES AA AND IN SUPINE WAS -5 DEGREES PASSIVELY. GAIT LIMITED TO 8 FEET BY SOB AND FEELINGS OF FATIGUE. P02 AT REST WAS 92% AND AFTER WALKING WAS 88%. PATIENT LEFT LYING IN BED WITH O2 ON. DAUGHTER IN ATTENDANCE. PATIENT HAD NO C/O AND STATED SHE WAS COMFORTABLE.
--- NOTE | 2017-08-02 16:45 | NUR ---
ASSISTED TO BSC AND BACK TO BED, NO C/O PAIN/DISCOMFORT, CALL LEVINE IN REACH.
[2017-08-02 19:18] VITALS: BP 123/62
--- NOTE | 2017-08-02 19:24 | NUR ---
REPORT RECIEVED; PT RESTING IN BED WITH FAMILY AT BEDSIDE. RESP EVEN AND UNLABORED WITH O2 IN PLACE. BED ALARM ON FOR SAFETY. PT ENCOURAGED TO CALL FOR ASSISTANCE. SAFETY PRECAUTIONS REINFORCED. FREQUENT ROUNDS MADE. PT DENIES PAIN OR DISCOMFORT. CALL LIGHT WITHIN REACH.
--- NOTE | 2017-08-02 20:47 | NUR ---
PT RESTING IN SEMI-FOWLERS POSITION WITH FAMILY AT BEDSIDE. PT DENIES PAIN. PT ALERT AND ORIENTED. RESP EVEN AND UNLABORED WITH O2 IN PLACE. TELE. ABD SOFT; ACTIVE BOWEL SOUNDS NOTED. SURGICAL INCISION TO LEFT KNEE WELL APPROXIMATED WITH STERI GLUE; CDI. TRACE EDEMA NOTED TO LEFT ANKLE. PEDAL PULSES PALPATED BILAT. BED ALARM IN PLACE FOR SAFETY. IV REMOVED; NEW IV PLACED BY PECAN SHELLER. SAFETY PRECAUTIONS REINFORCED. CALL LIGHT WITHIN REACH. FREQUENT ROUNDS MADE.
--- NOTE | 2017-08-03 00:10 | NUR ---
RESP EVEN AND UNLABORED WITH O2 IN PLACE; NO SIGN OF DISCOMFORT NOTED. TELE IN PLACE. BED ALARM ON FOR SAFETY. FAMILY IN ROOM. CALL LIGHT WITHIN REACH.
[2017-08-03 00:15] VITALS: BP 127/59
--- NOTE | 2017-08-03 04:02 | NUR ---
ASSESSMENT UNCHANGED. RESP EVEN AND UNLABORED WITH O2 IN PLACE. TELE IN PLACE. FAMILY IN ROOM. BED ALARM ON FOR SAFETY. CALL LIGHT WITHIN REACH.
[2017-08-03 04:33] VITALS: BP 130/65
--- NOTE | 2017-08-03 07:30 | NUR ---
REPORT RECEIVED FROM DIANA RICHARDSON. PT ON LEFT SIDE IN BED. DENIES PAIN. REPORTING OF CONCERNS ENCOURAGED. ALERT AND ORIENTED AT THIS TIME. PLAN OF CARE DISCUSSED. CALL LIGHT REVIEWED AND IN REACH. PT'S DAUGHTER ASLEEP ON COUCH AT BEDSIDE.
[2017-08-03 08:37] VITALS: BP 126/66
--- NOTE | 2017-08-03 09:30 | NUR ---
PT AMBULATED ACROSS ROOM TO RECLINER CHAIR, WITH WALKER AND STANDBY ASSIST. TOLERATED ACTIVITY WELL. PHYSICAL THERAPIST AT BEDSIDE NOW FOR THERAPY.
--- NOTE | 2017-08-03 09:59 | NUR ---
Pt seen for gait and ther ex this am. She was OOB in chair with her daughter present. LLE ex performed in sitting 2x10 reps including quad sets, hip abd/add, IR/ER, knee flexion and ext, ankle pumps. Pt ambulated 1x50' and 1x30' with CGA and verbal instructions. Pt tends to walk too close to walker and used step too gait patten. Pt returned to chair and positioned with legs elevated, pillow under calf to off wt heels, call araiza and phone in reach. Gait belt and non skid socks in place during treatment.
[2017-08-03 11:15] VITALS: BP 115/68
--- NOTE | 2017-08-03 12:16 | NUR ---
PT SITTING IN CHAIR AT BEDSIDE. SHOWER COMPLETED. MAGNESIUM 4 GM IV STARTED. DISCHARGE FOR TODAY TO [facility] DISCUSSED. PT AND HER DAUGHTER STATE UNDERSTANDING.
[2017-08-03] MEDS ORDERED: PERCOCET 10/31 COMBO PO (12:31)
[2017-08-03] MEDS ORDERED: ASPIRIN EC325 MG PO (12:31)
[2017-08-03] MEDS ORDERED: ALDACTONE25 MG PO (12:32)
[2017-08-03 15:05] VITALS: BP 107/56
--- NOTE | 2017-08-03 15:53 | NUR ---
Discharge instructions given. Patient verbalizes understanding of same. Discharged in stable condition via [facility]. All belongings sent with pt.
== END 2017-08-03 16:00 | DRG 470 ==
LOC: MS2 07-27 07:47
PROVIDERS: Internal Medicine; Internal Medicine Nephrology; Nurse Practitioner Family; ADMIT Orthopaedic Surgery; ATTEND Orthopaedic Surgery
PROC: 0SRD0J9 Replacement of Left Knee Joint with Synthetic Substitute, Cemented, Open Approach (ICD-10-PCS; principal; 2017-07-27)
DX: M17.12 Unilateral primary osteoarthritis, left knee (principal); E87.8 Other disorders of electrolyte and fluid balance, not elsewhere classified; F05 Delirium due to known physiological condition; E22.2 Syndrome of inappropriate secretion of antidiuretic hormone; E83.42 Hypomagnesemia; D62 Acute posthemorrhagic anemia; S82.142A Displaced bicondylar fracture of left tibia, initial encounter for closed fracture; C50.919 Malignant neoplasm of unspecified site of unspecified female breast; N18.3 Chronic kidney disease, stage 3 (moderate); M21.062 Valgus deformity, not elsewhere classified, left knee; I12.9 Hypertensive chronic kidney disease with stage 1 through stage 4 chronic kidney disease, or unspecified chronic kidney disease; E78.5 Hyperlipidemia, unspecified; J45.909 Unspecified asthma, uncomplicated; M10.9 Gout, unspecified; I25.2 Old myocardial infarction; T43.225A Adverse effect of selective serotonin reuptake inhibitors, initial encounter; H91.90 Unspecified hearing loss, unspecified ear; W01.0XXA Fall on same level from slipping, tripping and stumbling without subsequent striking against object, initial encounter; Z79.899 Other long term (current) drug therapy; Z98.61 Coronary angioplasty status
CPT/HCPCS: J1756; J2270; J3475